=== PATIENT | male | born 1945 | race Caucasian/White ===

== ENCOUNTER 2018-12-11 10:38 | Day surgery (SDC) | payer OTHER ==
--- NOTE | 2018-12-10 12:19 | EKG ---
Test Date: 2018-12-10 Test Time: 09:29:22 [place] Chief: JANIYA MEASUREMENT RESULTS: Intervals: Rate: 87 TN: QRSD: 100 QT: 360 QTc: 433 [place]: P: TN: QRS: -36 T: 8 INTERPRETIVE STATEMENTS: Atrial fibrillation Left axis deviation Inferior infarct, age undetermined Abnormal ECG No previous ECG available for comparison Electronically Signed On 12-10-18 12:18:12 CDT by Lamont Grady
--- OUTSIDE RECORDS SUMMARY | 2018-12-11 10:41 | XMS REPORT ---
:1945 [facility] Address [address] [place] [address] Dr. Guidry [address] [place] [id number] Care Team Providers Name Role Phone Unavailable Unavailable Unavailable Problems This patient has no known problems. Allergies, Adverse Reactions, Alerts This patient has no known allergies or adverse reactions. Medications This patient has no known medications.
[2018-12-11] MEDS ORDERED: Ringers Lactate 1,000 ML IV ONE (11:06)
[2018-12-11 11:15] LABS: Protime INR 1.35
[2018-12-11] MEDS ORDERED: LIDOCAINE 1.5% W/EPI AMP 5 ML ONE (11:57)
[2018-12-11] MEDS ORDERED: BUPIVACA 0.25%/EPI 0.0005% MDV 50 ML VIAL ONE (11:58)
[2018-12-11] MEDS ORDERED: LIDOCAINE 2% MPF 5 ML VIAL ONE (12:12)
[2018-12-11] MEDS ORDERED: FENTANYL CITR 100 MCG/2 ML ONE (12:12)
[2018-12-11] MEDS ORDERED: PROPOFOL 200 MG/20 ML VIAL IV ONE (12:12)
[2018-12-11] MEDS ORDERED: MIDAZOLAM HCL 2 MG/2 ML INJ ONE (12:12)
[2018-12-11] MEDS ORDERED: ONDANSETRON 4 MG/2 ML VIAL ONE (12:13)
--- NOTE | 2018-12-12 04:04 | OP ---
Date of Procedure: 12/11/2018 Surgeon: Ashley Amador MD Preoperative Diagnosis: Squamous cell carcinoma in situ, midline lower lip. Postoperative Diagnosis: Squamous cell carcinoma in situ, midline lower lip. Indication For Procedure: Aditya Frar is a 73-year-old with a history of atrial fibrillation for which he takes warfarin. He has a history of an in- office procedure on the lip under local anesthetic, resulting in severe vasovagal reaction requiring rescue breathing. He presented with a nonhealing lesion of the midline lower lip, which was recurrent from prior resection and the risks, benefits, and alternatives were discussed. Due to the patient's poor tolerance of procedure in the clinic with need for airway intervention, recommendation was made for performance of the procedure in the operating room under monitored anesthesia care. The risks, benefits, and alternatives to the procedure were discussed with the patient and his , who agreed to proceed. The patient was asked to hold his warfarin for 3 days prior to the procedure and his INR perioperatively was 1.35. Description Of Procedure: The patient was brought to the operating room. He was placed under monitored anesthesia care with oxygen delivered p.r.n. via nasal cannula. The face and lip were prepped with Betadine. A bilateral mental nerve block was placed with Marcaine containing epinephrine. Local infiltration into the midline lip was also applied. The lesion was noted to be a small slightly crusted ulceration approximately 2-3 mm in diameter. A transverse wedge resection was designed with a 3-mm margin on either side. The wet and dry vermilion portions of the lip as well as a portion of the cutaneous lip was resected. A marking suture was placed at 12 o'clock, which was located on the intraoral aspect of the defect. Full thickness of the skin as well as a small amount of underlying lip musculature and minor salivary gland tissue was noted. The specimen was sent to Pathology for frozen section analysis. Bleeding was controlled using Bovie electrocautery. The lip was closed primarily in a layered fashion using 4-0 Vicryl to approximate the deep aspects and a 4-0 chromic running suture for the superficial layers. The margins were confirmed as negative. The area of concern showed some cellular atypia and chronic inflammation and final diagnosis was deferred to permanent pathology. The procedure was then concluded. The patient was brought to Day Surgery for further recovery from sedation and will be discharged home in the care of his . Complications were none. Disposition: The patient will be discharged to home in the care of his and to follow up with Dr. Amador in 1 to 2 weeks for evaluation of healing. YEIMI/DEVANTE Voice ID: [id number] Report ID: [id number] MTDD
== END 2018-12-11 13:35 | disposition home or self-care (01) ==
LOC: OR 10:38
PROVIDERS: ATTEND Otolaryngology
PROC: 0CB10ZX Excision of Lower Lip, Open Approach, Diagnostic (ICD-10-PCS; principal; 2018-12-11 12:00)
DX: D00.01 Carcinoma in situ of labial mucosa and vermilion border (principal); I48.91 Unspecified atrial fibrillation; I10 Essential (primary) hypertension; E78.00 Pure hypercholesterolemia, unspecified; Z79.01 Long term (current) use of anticoagulants; Z79.899 Other long term (current) drug therapy; Z87.891 Personal history of nicotine dependence
CPT/HCPCS: 93005; 36415; 85610; 88331; 88332 ×2; 88305; 11641; 12051; J2704; J2250; J2001; J2405; J3010